=== PATIENT | female | born 1960 | race African-American/Black ===

== ENCOUNTER 2021-07-31 20:25 | Emergency (ER) | payer OTHER ==
[2021-07-31] MEDS ORDERED: NAPROXEN 500 MG TABLET PO ONE (20:43)
[2021-07-31 20:48] VITALS: BP 162/77; PULSE 86; TEMP 97.8; BMI 26.6
[2021-07-31] MEDS ORDERED: NAPROXEN 500 MG TABLET ONE (20:48)
== END 2021-07-31 22:16 | disposition home or self-care (01) ==
LOC: FER 20:25
DX: S99.922A Unspecified injury of left foot, initial encounter (principal)
CPT/HCPCS: 73610-TC-LT-FY; 73630-TC-LT; 99284-25